=== PATIENT | female | born 1980 | race Two or more races ===

== ENCOUNTER 2024-01-02 12:46 | Emergency (ER) | payer BC ==
[2024-01-02 13:03] VITALS: BP 137/68; PULSE 90; RESP 18; TEMP 97.8; BMI 27.4
[2024-01-02 14:18] LABS: PH,URINE 6.5 (5.0-8.0); URINE APPEARANCE CLEAR; URINE BILIRUBIN NEGATIVE (NEGATIVE); URINE COLOR YELLOW; URINE GLUCOSE (UA) NEGATIVE (NEGATIVE); URINE KETONE NEGATIVE (NEGATIVE); URINE LEUK ESTERASE NEGATIVE (NEGATIVE); URINE NITRITE NEGATIVE (NEGATIVE); URINE PROTEIN NEGATIVE (NEGATIVE); URINE UROBILINOGEN 0.2 mg/dL (0.2-1.0)
== END 2024-01-02 14:51 | disposition home or self-care (01) ==
LOC: JER 12:46
PROC: 0T9B70Z Drainage of Bladder with Drainage Device, Via Natural or Artificial Opening (ICD-10-PCS; principal; 2024-01-02)
DX: R33.9 Retention of urine, unspecified (principal); R10.30 Lower abdominal pain, unspecified
CPT/HCPCS: 81003; 84703; 87086; 99284-25